=== PATIENT | male | born 1965 | race Caucasian/White ===

== ENCOUNTER 2017-08-27 06:09 | Day surgery (SDC) | payer OTHER ==
[2017-08-26 18:36] VITALS: BMI 38.7
[2017-08-27] MEDS ORDERED: SUCCINYLCHOLINE CHLORIDE 200 MG/10 ML VIAL ONE (07:28)
[2017-08-27] MEDS ORDERED: PROPOFOL 20 ML ONE ×4 (07:28)
[2017-08-27] MEDS ORDERED: MIDAZOLAM HCL 2 MG/2 ML SINGLE DOSE VIAL ONE ×2 (07:29)
[2017-08-27] MEDS ORDERED: LIDOCAINE HCL/PF 2% SDV 5ML VIAL ONE (07:50)
--- NOTE | 2017-08-27 08:27 | OP ---
Operative Note - Note: Operative Date: 08/27/17 Pre-Operative Diagnosis: L renal calculus Operation: ESWL L Findings: L renal calculus Post-Operative Diagnosis: Same as Pre-op Surgeon: Vishal Hwang Anesthesiologist/POLITICAL SCIENCE RESEARCH ASSISTANT: Gamaliel Mas Anesthesia: Fractional Estimated Blood Loss (mls): 0 Operative Report Dictated: Yes
[2017-08-27] MEDS ORDERED: ONDANSETRON 4 MG/2 ML VIAL IVPUSH PRN (09:12)
[2017-08-27] MEDS ORDERED: LACTATED RINGERS SOLUTION 1,000 ML IV SCH (09:15)
[2017-08-27 09:28] VITALS: TEMP 97.8
[2017-08-27 13:38] VITALS: BP 126/74; PULSE 88
--- NOTE | 2017-08-27 14:23 | OP ---
DATE OF OPERATION: 08/27/2017 PREOPERATIVE DIAGNOSIS: Left renal calculus. POSTOPERATIVE DIAGNOSIS: Left renal calculus. PROCEDURE: Extracorporeal shockwave lithotripsy left renal calculus. SURGEON: Vishal Hairston MD SUPPLY MANAGER: None. ANESTHESIA: IV sedation. ANESTHESIOLOGIST: Dr. Mas SPECIMENS: None. CULTURES: None. DRAINS: None. ESTIMATED BLOOD LOSS: None. COMPLICATIONS: None. DESCRIPTION OF PROCEDURE: Patient was brought to the operating room, placed on the operating table in a supine position. After administration of intravenous sedation, the patient was position over the treatment head and under ultrasound guidance, a 5 mm left lower pole renal calculus was identified, targeted and delivered 2500 shocks at maximum kilovoltage with excellent fragmentation. He tolerated the procedure well, transferred to the recovery room in stable condition. VISHAL HAIRSTON M.D. [id number]
== END 2017-08-27 12:30 | disposition home or self-care (01) ==
LOC: JASU-SURG 06:09
PROVIDERS: ATTEND Urology
PROC: 0TF4XZZ Fragmentation in Left Kidney Pelvis, External Approach (ICD-10-PCS; principal; 2017-08-27 08:00)
DX: N20.0 Calculus of kidney (principal)
CPT/HCPCS: 94760

== ENCOUNTER 2018-04-08 05:10 | Day surgery (SDC) | payer OTHER ==
[2018-04-07 18:28] VITALS: BMI 39.2
--- NOTE | 2018-04-08 08:11 | HP ---
History & Physical Update - History History: No Change - Physical Physical: No Change - Assessment Assessment: No Change - Plan Plan: No Change
--- NOTE | 2018-04-08 08:12 | OP ---
Operative Note - Note: Operative Date: 04/08/18 Pre-Operative Diagnosis: L renal calculus Operation: ESWL L Findings: radiolucent 4 mm L LP renal calc Post-Operative Diagnosis: Same as Pre-op Surgeon: Vishal Hwang Anesthesiologist/DIRECTOR OF DIGITAL TECHNOLOGY: Deejay Fernandez Anesthesia: Fractional Estimated Blood Loss (mls): 0 Operative Report Dictated: Yes
[2018-04-08] MEDS ORDERED: MIDAZOLAM HCL 2 MG/2 ML SINGLE DOSE VIAL ONE (08:51)
[2018-04-08] MEDS ORDERED: KETOROLAC TROMETHAMINE 30 MG/1 ML VIAL ONE (09:03)
[2018-04-08 09:33] VITALS: TEMP 97.9
[2018-04-08 10:01] VITALS: BP 143/72; PULSE 85
--- NOTE | 2018-04-08 10:08 | OP ---
DATE OF OPERATION: 04/08/2018 PREOPERATIVE DIAGNOSIS: Left renal calculus. POSTOPERATIVE DIAGNOSIS: Left renal calculus. PROCEDURE: Extracorporeal shock wave lithotripsy, left renal calculus. SURGEON: Vishal Hairston MD LANGUAGE PATHOLOGIST: None. ANESTHESIA: IV sedation. ANESTHESIOLOGIST: Deejay Fernandez MD SPECIMENS: None. CULTURES: None. DRAINS: None. ESTIMATED BLOOD LOSS: None. COMPLICATIONS: None. DESCRIPTION OF PROCEDURE: Patient was brought in the operating room, placed on the operating table in supine position. After the administration of intravenous sedation, patient was positioned over the treatment head, and under fluoroscopic guidance, overlying bowel gas obscured visualization of the left renal calculus. Now, under ultrasound guidance, approximately 4-mm left lower pole renal calculus was identified, targeted, and delivered 2500 shocks at maximum kilovoltage with excellent fragmentation. He tolerated the procedure well, transferred to the recovery room in stable condition. VISHAL HAIRSTON M.D. GERMAN/[id number]
== END 2018-04-08 10:10 | disposition home or self-care (01) ==
LOC: JASU-SURG 05:10
PROVIDERS: ATTEND Urology
PROC: 0TF4XZZ Fragmentation in Left Kidney Pelvis, External Approach (ICD-10-PCS; principal; 2018-04-08 08:45)
DX: N20.0 Calculus of kidney (principal)